=== PATIENT | male | born 1985 | race Caucasian/White ===

== ENCOUNTER 2016-04-30 08:32 | Emergency (ER) | payer OTHER ==
[~2016-04-30] VITALS: Ht 177.8 cm; Wt 102.1 kg
[~2016-04-30 08:32] MED LIST: AMPH30TA2 PO; CIPR-17 PO; HYDR-1231 PO; PRED20TA PO
--- OUTSIDE RECORDS SUMMARY | 2016-04-30 08:38 | XMS REPORT | Continuity of Care Document ---
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 Medications Medication Dose Route Sig Days/Qty Instructions Order Date Discontinued Date Status Amphet Asp/Amphet/D-Amphet 30 Mg PO DAILY 01/25/10 02/09/14 Discontinued Ciprofloxacin 1 Tab PO DAILY 20 Qty 01/26/10 02/09/14 Discontinued Social History Social History Problem Response Recorded Date/Time Alcohol Use Occasionally Uses 02/09/2014 9:50pm Recreational Drug Use No 02/09/2014 9:50pm Recent Foreign Travel No 02/09/2014 9:50pm Sexually Transmitted Disease No 02/09/2014 9:50pm Smoking Status Current Everyday Smoker 02/09/2014 9:50pm Query Response Start Date Stop Date Smoking Status Current Everyday Smoker Hospital Discharge Instructions No hospital discharge instructions. Plan of Care No plan of care. Functional Status No functional status results. Allergies, Adverse Reactions, Alerts Allergen Type Severity Reaction Status Last Updated No Known Drug Allergies Active 01/25/10 Immunizations No immunization records. Vital Signs Acute Vital Signs Vital Response Date/Time Temperature (Fahrenheit) 98.2 degrees F (97.6 - 99.5) Temperature (Calculated Celsius) 36.21702 degrees C (36.4 - 37.5) Temperature Source Temporal Pulse Rate (adult) 94 bpm (60 - 90) Respiratory Rate 18 bpm (12 - 24) O2 Sat by Pulse Oximetry 98 % (88 - 100) Blood Pressure 163/93 mm Hg Pain Pain Intensity 8 Height (Feet) 6 feet Height (Inches) 0 inches Height (Calculated Centimeters) 182.613111 cm Weight (Pounds) 235 pounds Weight (Calculated Kilograms) 106.877447 kilograms Calculated BMI 31.87 Results No known relevant diagnostic tests, laboratory data and/or discharge summary. Procedures No known history of procedures. Encounters Encounter Location Date/Time Departed Emergency Room Via [facility] 02/09/14 9:49pm Recent Diagnosis
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
[2016-04-30] MEDS ORDERED: IBUPROFEN 800 MG (MOTRIN) TAB PO ONE (09:15)
[2016-04-30] MEDS ORDERED: ACETAMINOPHEN 500 MG TAB (TYLENOL) PO ONE (09:30)
--- NOTE | 2016-04-30 09:40 | Diagnostic Imaging Report ---
EXAMINATION: Left knee, 3 views. Right knee, 3 views. COMPARISON: None. HISTORY: 30-year-old male, left lateral knee pain after playing basketball yesterday. FINDINGS: The right and left patella are currently normally positioned. There is a small left knee joint effusion. There is no radiographically apparent acute fracture. There are areas of ossification about the level of the left tibial tubercle which may relate to sequela of prior injury or chronic findings of old [place]-Schlatter disease. There is no adjacent soft tissue swelling. Joint spaces are well-preserved. IMPRESSION: 1. The patellas are currently well positioned. 2. Small left knee joint effusion. 3. No radiographically apparent acute fracture. 4. If the patient has strong clinical history suggestive of transient patellar dislocation, consider dedicated MRI of the left knee to evaluate for potential associated abnormalities. Dictated by: Dictated on workstation # [id number]
[2016-04-30 10:05] VITALS: BP 148/62
== END 2016-04-30 10:05 | disposition home or self-care (01) ==
LOC: EDUNIT# 08:32 → ER 08:34
DX: S83.92XA Sprain of unspecified site of left knee, initial encounter (principal); X50.9XXA Other and unspecified overexertion or strenuous movements or postures, initial encounter; Y92.310 Basketball court as the place of occurrence of the external cause; Y93.67 Activity, basketball; Y99.8 Other external cause status
CPT/HCPCS: 99283

== ENCOUNTER → 2016-05-09 | Outpatient (CLI) | payer OTHER ==
--- OUTSIDE RECORDS SUMMARY | 2016-05-09 13:11 | XMS REPORT | Continuity of Care Document ---
Author Author [facility] Organization [facility] Address Unknown Phone Unavailable Care Team Providers Care Fisher Clam Name Role Phone RAYNE BARNES MD PCP Insurance Providers Payer Name Policy Number Subscriber Name Relationship [facility] [id number] Maurice Morel 16 Self / Same As [...] F (97.6 - 99.5) Temperature (Calculated Celsius) 36.96737 degrees C (36.4 - 37.5) Temperature Source Temporal Pulse Rate (adult) 94 bpm (60 - 90) Respiratory Rate 18 bpm (12 - 24) O2 Sat by Pulse Oximetry 98 % (88 - 100) Blood Pressure 163/93 mm Hg Pain Pain Intensity 8 Height (Feet) 6 feet Height (Inches) 0 inches Height (Calculated Centimeters) 182.358782 cm Weight (Pounds) 235 pounds Weight (Calculated Kilograms) 106.765631 kilograms Calculated BMI 31.87 Results No known relevant diagnostic tests, laboratory data and/or discharge summary. Procedures No known history of procedures. Encounters Encounter Location Date/Time Departed Emergency Room Via [facility] 02/09/14 9:49pm Recent Diagnosis
--- NOTE | 2016-05-09 14:24 | Diagnostic Imaging Report ---
PROCEDURE: MRI left joint lower extremity without contrast. TECHNIQUE: Multiplanar, multisequence non contrast-enhanced MRI of the left lower extremity was accomplished. INDICATION: Fell playing basketball with continued lateral knee pain. FINDINGS: The cruciate ligaments are intact. Collateral ligaments are intact. There is some edema along the lateral collateral ligament suggesting a strain. There is a rather large vertical tear extending along the midportion of the lateral meniscus. There is suggestion of a small fragment being absent as well. There does appear to be a low-signal structure on the T2-weighted images along the medial portion of the joint abutting the tibial spine adjacent to the anterior cruciate ligament likely representing a loose fragment. The medial meniscus is intact. The articulating cartilage is intact. No evidence of subcortical edema. No cortical fractures demonstrated. The patella is in good position with the cochlea. Articulating surfaces are normal. The quadriceps tendon and patellar ligament are intact. There is small joint effusion. No evidence of popliteal cyst. The surrounding muscles and tendons appear normal. IMPRESSION: 1. Rather large tear in the midportion of the lateral meniscus. There does appear to be a small loose fragment present medially within the lateral joint space. 2. Strain of the lateral collateral ligament. 3. No bone contusions or occult fractures demonstrated. Dictated by: Dictated on workstation # [id number]
== END ==
LOC: RAD 13:08
PROVIDERS: ATTEND Nurse Practitioner
DX: M23.262 Derangement of other lateral meniscus due to old tear or injury, left knee (principal)
CPT/HCPCS: 73721